=== PATIENT | female | born 1960 | race Hispanic/Latino ===

== ENCOUNTER 2021-03-29 12:18 | Inpatient (IN) | payer OTHER, SELFPAY ==
[2021-03-29] MEDS ORDERED: Furosemide 40 MG/4 ML VIAL ONE (12:43)
[2021-03-29] MEDS ORDERED: Nitroglycerin 2% Ointment 1 INCH/1 GM Packet ONE (12:44)
[2021-03-29 12:46] LABS: #Eosinphils 0.1 10x3/uL (0.0-0.5); #Monocytes 0.6 10x3/uL (0.0-1.1); #Neutrophils 7.2 10x3/uL (1.5-8.4); %Basophils 0.2 % (0.0-2.0); %Eosinophils 0.9 % (0.0-6.0); %Lymphocytes 18.7 % (18.0-47.0); %Monocytes 6.6 % (0.0-10.0); %Neutrophils 73.2 % (40.0-75.0); Mean Corpuscular HGB CONC 32.7 g/dL (32.0-36.0); Mean Corpuscular Hemoglobin 28.1 pg (27.0-33.0); Mean Corpuscular Volume 85.9 fl (81.6-98.3); Platelet Count 295 10x3/uL (150-450); RBC Distribution Width 13.6 % (11.5-14.5); Red Blood Cell (RBC) Count 4.98 10x6/uL (3.90-5.03); White Blood Cell (WBC) Count 9.8 10x3/uL (3.5-10.5)
[2021-03-29 13:07] LABS: ALT (SGPT) 42 U/L (8-55); AST (SGOT) 23 U/L (5-34); Albumin 4.2 g/dL (3.4-4.8); Alkaline Phosphatase 157 U/L (40-110); Anion Gap 16 mmol/L (10-20); BUN (Urea Nitrogen) 10 mg/dL (9.8-20.1); Bilirubin, Total 0.8 mg/dL (0.2-1.2); CK (CPK) 198 U/L (29-168); Calc. Creatinine Clearance 0 mL/min (70-130); Calcium 9.1 mg/dL (7.8-10.44); Carbon Dioxide 18 mmol/L (23-31); Chloride 107 mmol/L (98-107); Globulin 3.1 g/dL (2.4-3.5); Glucose 374 mg/dL (80-115); Potassium 4.1 mmol/L (3.5-5.1); Protein, Total 7.3 g/dL (5.8-8.1); Sodium 137 mmol/L (136-145)
[2021-03-29 13:53] LABS: SARS-CoV-2 NAA Rapid Test Not Detected (NotDetected)
[2021-03-29] MEDS ORDERED: Acetaminophen 650 MG Suppository PR PRN (15:12)
[2021-03-29] MEDS ORDERED: Ondansetron PF 4 MG/2 ML Vial IVP PRN (15:12)
[2021-03-29] MEDS ORDERED: Ondansetron ODT 4 MG TAB PO PRN (15:12)
[2021-03-29] MEDS ORDERED: Acetaminophen 325 MG TAB PO PRN (15:12)
[2021-03-29 15:25] LABS: Lactic Acid 2.1 mmol/L (0.5-2.2)
[2021-03-29 15:42] LABS: Magnesium 1.3 mg/dL (1.6-2.6)
[2021-03-29 15:51] LABS: Troponin I 0.077 ng/mL (< 0.028)
[2021-03-29] MEDS ORDERED: Acetaminophen 500 MG TAB ONE (16:19)
[2021-03-29 16:45] LABS: Lactic Acid 1.9 mmol/L (0.5-2.2)
[2021-03-29 18:43] LABS: Troponin I 0.112 ng/mL (< 0.028)
[2021-03-29 19:57] VITALS: BMI 32.2
[2021-03-29] MEDS ORDERED: Magnesium 2 GM/50 ML 2 GM in Premix Bag 1 BAG IVPB SCH (20:00)
[2021-03-29] MEDS: cefTRIAXone\\ROCEPHIN 1 GM in Sodium Chloride 0.9% 100 ML IVPB SCH (21:29)
[2021-03-29] MEDS: Nitroglycerin 2% Ointment 1 INCH/1 GM Packet TOP SCH (21:30)
[2021-03-29] MEDS: Azithromycin 500 MG in Sodium Chloride 0.9% 250 ML 250 ML IVPB SCH (21:30)
[2021-03-30 05:14] LABS: #Eosinphils 0.2 10x3/uL (0.0-0.5); #Monocytes 0.6 10x3/uL (0.0-1.1); #Neutrophils 4.1 10x3/uL (1.5-8.4); %Basophils 0.3 % (0.0-2.0); %Eosinophils 2.2 % (0.0-6.0); %Lymphocytes 28.9 % (18.0-47.0); %Monocytes 9.1 % (0.0-10.0); %Neutrophils 59.2 % (40.0-75.0); Hemoglobin 12.7 g/dL (12.0-15.5); Mean Corpuscular Hemoglobin 28.7 pg (27.0-33.0); Mean Corpuscular Volume 84.2 fl (81.6-98.3); Mean Platelet Volume 10.1 fl (7.4-10.4); Platelet Count 274 10x3/uL (150-450); RBC Distribution Width 13.7 % (11.5-14.5); Red Blood Cell (RBC) Count 4.43 10x6/uL (3.90-5.03)
[2021-03-30 05:27] LABS: Anion Gap 15 mmol/L (10-20); BUN (Urea Nitrogen) 7 mg/dL (9.8-20.1); Calc. Creatinine Clearance 120 mL/min (70-130); Calcium 8.7 mg/dL (7.8-10.44); Carbon Dioxide 21 mmol/L (23-31); Chloride 106 mmol/L (98-107); Glucose 296 mg/dL (80-115); Magnesium 1.8 mg/dL (1.6-2.6); Potassium 3.9 mmol/L (3.5-5.1); Sodium 138 mmol/L (136-145)
[2021-03-30] MEDS: Furosemide 40 MG/4 ML VIAL SLOW IVP SCH ×2 (05:57→15:29)
[2021-03-30] MEDS: Nitroglycerin 2% Ointment 1 INCH/1 GM Packet TOP SCH ×3 (05:57→21:16)
[2021-03-30] MEDS: Aspirin Chewable 81 MG TAB PO SCH (09:28)
[2021-03-30] MEDS ORDERED: Dextrose 5% in Water 1,000 ML IV PRN (09:36)
[2021-03-30] MEDS ORDERED: Dextrose 50% Abboject 50 ML SYRINGE SLOW IVP PRN (09:36)
[2021-03-30] MEDS ORDERED: HumaLOG 300 UNITS/3 ML VIAL SC PRN (09:36)
[2021-03-30] MEDS: HumaLOG 300 UNITS/3 ML VIAL SC SCH ×2 (11:38→18:01)
[2021-03-30] MEDS: HumaLOG 300 UNITS/3 ML VIAL SC PRN (11:39)
[2021-03-30 13:29] LABS: Troponin I 0.038 ng/mL (< 0.028)
[2021-03-30] MEDS: Simvastatin 10 MG TAB PO SCH (20:05)
[2021-03-30] MEDS: cefTRIAXone\\ROCEPHIN 1 GM in Sodium Chloride 0.9% 100 ML IVPB SCH (20:05)
[2021-03-30] MEDS: Nortriptyline HCl 25 MG CAP PO SCH (21:02)
[2021-03-30] MEDS: Carvedilol 12.5 MG TAB PO SCH (21:02)
[2021-03-30] MEDS: Lantus 1000 UNITS/10 ML VIAL SC SCH (21:04)
[2021-03-30] MEDS: Azithromycin 500 MG in Sodium Chloride 0.9% 250 ML 250 ML IVPB SCH (21:04)
[2021-03-31 04:30] LABS: #Eosinphils 0.2 10x3/uL (0.0-0.5); #Monocytes 0.6 10x3/uL (0.0-1.1); #Neutrophils 4.3 10x3/uL (1.5-8.4); %Basophils 0.3 % (0.0-2.0); %Eosinophils 2.8 % (0.0-6.0); %Lymphocytes 26.8 % (18.0-47.0); %Monocytes 9.1 % (0.0-10.0); %Neutrophils 60.7 % (40.0-75.0); Hemoglobin 13.3 g/dL (12.0-15.5); Mean Corpuscular HGB CONC 34.1 g/dL (32.0-36.0); Mean Corpuscular Hemoglobin 28.5 pg (27.0-33.0); Mean Corpuscular Volume 83.5 fl (81.6-98.3); Platelet Count 309 10x3/uL (150-450); RBC Distribution Width 13.5 % (11.5-14.5); Red Blood Cell (RBC) Count 4.67 10x6/uL (3.90-5.03)
[2021-03-31 04:39] LABS: Anion Gap 15 mmol/L (10-20); BUN (Urea Nitrogen) 15 mg/dL (9.8-20.1); Calc. Creatinine Clearance 108 mL/min (70-130); Calcium 9.2 mg/dL (7.8-10.44); Carbon Dioxide 23 mmol/L (23-31); Chloride 102 mmol/L (98-107); Glucose 295 mg/dL (80-115); Potassium 3.8 mmol/L (3.5-5.1); Sodium 136 mmol/L (136-145)
[2021-03-31] MEDS: Furosemide 40 MG/4 ML VIAL SLOW IVP SCH ×2 (06:30→14:45)
[2021-03-31] MEDS: Nitroglycerin 2% Ointment 1 INCH/1 GM Packet TOP SCH ×3 (06:40→20:20)
[2021-03-31] MEDS: Aspirin Chewable 81 MG TAB PO SCH (08:17)
[2021-03-31] MEDS: Carvedilol 12.5 MG TAB PO SCH ×2 (08:17→20:30)
[2021-03-31] MEDS: HumaLOG 300 UNITS/3 ML VIAL SC SCH ×3 (08:18→18:08)
[2021-03-31] MEDS: HumaLOG 300 UNITS/3 ML VIAL SC PRN ×2 (12:42→18:09)
[2021-03-31] MEDS: Nortriptyline HCl 25 MG CAP PO SCH (20:30)
[2021-03-31] MEDS: Simvastatin 10 MG TAB PO SCH (20:30)
[2021-03-31] MEDS: cefTRIAXone\\ROCEPHIN 1 GM in Sodium Chloride 0.9% 100 ML IVPB SCH (20:30)
[2021-03-31] MEDS: Lantus 1000 UNITS/10 ML VIAL SC SCH (20:31)
[2021-03-31] MEDS: Azithromycin 500 MG in Sodium Chloride 0.9% 250 ML 250 ML IVPB SCH (22:32)
[2021-03-31] MEDS ORDERED: Azithromycin 500 MG VIAL ONE (22:33)
[2021-04-01 05:17] LABS: #Eosinphils 0.3 10x3/uL (0.0-0.5); #Monocytes 0.7 10x3/uL (0.0-1.1); #Neutrophils 4.1 10x3/uL (1.5-8.4); %Basophils 0.5 % (0.0-2.0); %Eosinophils 3.4 % (0.0-6.0); %Lymphocytes 29.5 % (18.0-47.0); %Monocytes 9.9 % (0.0-10.0); %Neutrophils 56.4 % (40.0-75.0); Hemoglobin 13.4 g/dL (12.0-15.5); Mean Corpuscular HGB CONC 34.5 g/dL (32.0-36.0); Mean Corpuscular Hemoglobin 28.5 pg (27.0-33.0); Mean Corpuscular Volume 82.6 fl (81.6-98.3); Mean Platelet Volume 9.7 fl (7.4-10.4); Platelet Count 307 10x3/uL (150-450); RBC Distribution Width 13.3 % (11.5-14.5); White Blood Cell (WBC) Count 7.3 10x3/uL (3.5-10.5)
[2021-04-01 05:39] LABS: Anion Gap 14 mmol/L (10-20); Chloride 102 mmol/L (98-107); Magnesium 1.5 mg/dL (1.6-2.6); Potassium 4.1 mmol/L (3.5-5.1)
[2021-04-01] MEDS: Nitroglycerin 2% Ointment 1 INCH/1 GM Packet TOP SCH (05:51)
[2021-04-01] MEDS: Furosemide 40 MG/4 ML VIAL SLOW IVP SCH (05:53)
[2021-04-01 07:24] LABS: BUN (Urea Nitrogen) 15 mg/dL (9.8-20.1); Calc. Creatinine Clearance 97 mL/min (70-130); Calcium 9.1 mg/dL (7.8-10.44); Carbon Dioxide 25 mmol/L (23-31); Glucose 291 mg/dL (80-115); Sodium 137 mmol/L (136-145)
[2021-04-01] MEDS: Aspirin Chewable 81 MG TAB PO SCH (08:21)
[2021-04-01] MEDS: Carvedilol 12.5 MG TAB PO SCH (08:21)
[2021-04-01] MEDS: HumaLOG 300 UNITS/3 ML VIAL SC SCH ×2 (08:21→12:49)
[2021-04-01] MEDS ORDERED: Enoxaparin Sodium 40 MG/0.4 ML SYRINGE SC SCH (09:00)
[2021-04-01] MEDS: HumaLOG 300 UNITS/3 ML VIAL SC PRN (12:50)
[2021-04-01 13:56] VITALS: BP 128/67; TEMP 97.1
[2021-04-01] MEDS ORDERED: Azithromycin 250 MG TAB PO SCH (22:00)
== END 2021-04-01 14:27 | disposition home or self-care (01) | DRG 291 ==
LOC: CSHERS 12:18 → CSHTELE 17:30
PROVIDERS: ADMIT Family Medicine; ATTEND Internal Medicine
DX: I11.0 Hypertensive heart disease with heart failure (principal); J18.9 Pneumonia, unspecified organism; I50.43 Acute on chronic combined systolic (congestive) and diastolic (congestive) heart failure; I42.8 Other cardiomyopathies; I16.0 Hypertensive urgency; I44.7 Left bundle-branch block, unspecified; Z20.822 Contact with and (suspected) exposure to COVID-19; E11.9 Type 2 diabetes mellitus without complications; E78.5 Hyperlipidemia, unspecified; Z87.891 Personal history of nicotine dependence
CPT/HCPCS: 36415; 36416; 71045; 71275; 80048; 80053; 82550; 83605; 83735; 83880; 84145; 84443; 84484; 85025; 93005; 93010; 93306; 94760; 96374; 97139; J0456; J0696; J1650; J1815; J1940; J3475; J3490; J7050; U0002